=== PATIENT | male | born 1995 | race Caucasian/White ===

== ENCOUNTER 2019-05-02 16:36 | Emergency (ER) | payer BC ==
[2019-05-02 16:42] VITALS: BP 130/75; PULSE 98; TEMP 97.5; BMI 26.6
[2019-05-02] MEDS ORDERED: BACITRACIN 15 GM TUBE TOPICAL OINTMENT ONE (17:00)
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
== END 2019-05-02 17:18 | disposition home or self-care (01) ==
LOC: JERFT 16:36
DX: T14.8XXA Other injury of unspecified body region, initial encounter (principal); V18.4XXA Pedal cycle driver injured in noncollision transport accident in traffic accident, initial encounter; Y93.55 Activity, bike riding; Y92.89 Other specified places as the place of occurrence of the external cause
CPT/HCPCS: 99281-25

== ENCOUNTER 2019-10-02 18:23 | Emergency (ER) | payer BC ==
[2019-10-02 18:30] VITALS: BP 110/62; PULSE 100; TEMP 102; BMI 26.6
[2019-10-02] MEDS ORDERED: ACETAMINOPHEN 325 MG TABLET (FP) PO ONE (18:30)
--- NOTE | 2019-10-02 18:30 | PDOC ---
Rapid Medical Evaluation Medical Evaluation: Allergies Allergy/AdvReac Type Severity Reaction Status Date / Time No Known Allergies Allergy Verified 05/02/19 16:42 I have performed a brief in-person evaluation of this patient. The patient presents with a chief complaint of: fever, postnasal drip, rhinorrhea, congestion, cough x 5 days; taking allergy meds without relief of sxs; took dayquil this AM Pertinent physical exam findings: In NAD I have ordered the following: Flu, Tylenol The patient will proceed to the ED for further evaluation. 10/02/19 18:27
[2019-10-02] MEDS ORDERED: ALBUTEROL SO4 2.5/IPRATROPIUM 0.5 INH SOL 3 ML VIAL.NEB. NEB ONE ×2 (18:53→19:06)
[2019-10-02] MEDS ORDERED: KETOROLAC TROMETHAMINE 30 MG/1 ML VIAL IM ONE (18:53)
--- NOTE | 2019-10-02 18:59 | PDOC ---
History of Present Illness - General Chief Complaint: Cold Symptoms Stated Complaint: COLD SYMPTOMS Time Seen by Provider: 10/02/19 18:27 History Source: Patient Exam Limitations: No Limitations - History of Present Illness Initial Comments: 10/02/19 18:54 24-year-old with history of seizure, Chiari malformation requiring decompression at the age of 11, asthma without history of intubation presents complaining of body aches, fever T-max 103, chills, sore throat, frontal headache for 3 days. Patient has been working long hours this week however decided to come in today given symptoms have not improved. He took DayQuil this morning. Denies chest pain, abdominal pain, nausea, vomiting, diarrhea, recent travel, or sick contacts. ROS: GENERAL/CONSTITUTIONAL: Fever, chills, body aches, denies weakness HEAD, EYES, EARS, NOSE AND THROAT: Positive sore throat, no changes in vision, No ear pain or discharge CARDIOVASCULAR: No chest pain RESPIRATORY: Positive cough and mild shortness of breath GASTROINTESTINAL: No pain, nausea, vomiting, diarrhea or constipation GENITOURINARY: No dysuria MUSCULOSKELETAL: No neck or back pain SKIN: No rash NEUROLOGIC: Frontal headache, vertigo, loss of consciousness, or loss of sensation PE: GENERAL: well-appearing, NAD HEAD: NCAT EYES: Pupils equal, round and reactive to light, sclera anicteric, conjunctiva clear ENT: Normal bilateral ear canals, Pharynx: Mild erythema, no exudate, uvula midline NECK: supple CHEST: nontender RESP: clear, no w/r/r CARDIO: rrr, no m/g/r ABD: +BS, soft, nontender, non distended BACK: no midline spinal ttp, no CVAT EXTREMITIES: Normal range of motion, no edema NEUROLOGICAL: Normal speech, normal gait SKIN: Warm, Dry Past History - Past Medical History Allergies/Adverse Reactions: Allergies Allergy/AdvReac Type Severity Reaction Status Date / Time carbamazepine [From Tegretol] Allergy Verified 10/02/19 18:30 morphine Allergy Verified 10/02/19 18:30 Home Medications: Ambulatory Orders Albuterol 0.083% Nebulizer Chacha [Ventolin 0.083% Nebulizer Soln -] 1 neb NEB Q6H #30 vial 10/02/19 Azithromycin 250 mg PO ONCE #6 tablet 10/02/19 COPD: No Seizures: Yes Other medical history: SICKLE CELL TRAIT - Psycho Social/Smoking Cessation Hx Smoking History: Never smoked Hx Alcohol Use: No Drug/Substance Use Hx: No *Physical Exam - Vital Signs Last Vital Signs Temp Pulse Resp BP Pulse Ox 102 F H 100 H 18 110/62 99 10/02/19 18:26 10/02/19 18:26 10/02/19 18:26 10/02/19 18:26 10/02/19 18:26 Medical Decision Making - Medical Decision Making 10/02/19 18:57 24-year-old male with history of seizures, asthma, Chiari malformation requiring decompression at age 11 complaining of cough, body aches, sore throat , fever T-max 103, chills x3 days. Flu swab and rapid strep swab obtained DuoNeb IM Toradol 30 mg x 1 Reassess 10/02/19 20:48 Chest x-ray negative Flu and rapid strep swabs negative Temp 99.3 Patient feels better after Toradol and DuoNeb Prescribed Z-Ihsan and albuterol solution Note for work provided Return precautions discussed Discharge - Discharge Information Problems reviewed: Yes Clinical Impression/Diagnosis: Viral upper respiratory illness Condition: Stable Disposition: HOME - Admission No - Additional Discharge Information Prescriptions: Albuterol 0.083% Nebulizer Chacha [Ventolin 0.083% Nebulizer Soln -] 1 neb NEB Q6H #30 vial Azithromycin 250 mg PO ONCE #6 tablet - Follow up/Referral - Patient Discharge Instructions Additional Instructions: Take azithromycin and albuterol solution as prescribed Follow-up with your doctor within 1 week Return to ED if shortness of breath, chest pain, nausea, vomiting, diarrhea, fever, chills or worsening symptoms - Post Discharge Activity
[2019-10-02] MEDS ORDERED: KETOROLAC TROMETHAMINE 30 MG/1 ML VIAL ONE (19:05)
[2019-10-02] MEDS ORDERED: ACETAMINOPHEN 500 MG TABLET (FP) PO ONE (20:03)
[2019-10-02] MEDS ORDERED: ACETAMINOPHEN 500 MG TABLET (FP) ONE (20:16)
== END 2019-10-02 21:05 | disposition home or self-care (01) ==
LOC: JERFT 18:23
PROC: 3E0F7GC Introduction of Other Therapeutic Substance into Respiratory Tract, Via Natural or Artificial Opening (ICD-10-PCS; principal; 2019-10-02)
PROC: 3E0233Z Introduction of Anti-inflammatory into Muscle, Percutaneous Approach (ICD-10-PCS; 2019-10-02)
DX: J06.9 Acute upper respiratory infection, unspecified (principal); B97.89 Other viral agents as the cause of diseases classified elsewhere; J45.909 Unspecified asthma, uncomplicated; G40.909 Epilepsy, unspecified, not intractable, without status epilepticus; D57.3 Sickle-cell trait; Z88.8 Allergy status to other drugs, medicaments and biological substances; Z88.5 Allergy status to narcotic agent
CPT/HCPCS: 71046-TC-FY; 87070; 87804; 87880; 99281-25

== ENCOUNTER 2021-08-22 22:48 | Emergency (ER) | payer BC, OTHER ==
[2021-08-22 22:56] VITALS: BMI 27.8
[2021-08-22] MEDS ORDERED: ALBUTEROL SO4 2.5/IPRATROPIUM 0.5 INH SOL 3 ML VIAL.NEB. NEB ONE ×2 (23:20→23:32)
[2021-08-22] MEDS ORDERED: ALBUTEROL SO4 HFA INHALER IH ONE ×2 (23:25→23:32)
[2021-08-23 01:10] VITALS: BP 119/75; PULSE 86; TEMP 97.4
== END 2021-08-23 01:10 | disposition home or self-care (01) ==
LOC: JER 22:48
PROC: 3E0F7GC Introduction of Other Therapeutic Substance into Respiratory Tract, Via Natural or Artificial Opening (ICD-10-PCS; principal; 2021-08-22)
DX: J45.909 Unspecified asthma, uncomplicated (principal); J06.9 Acute upper respiratory infection, unspecified; Z11.52 Encounter for screening for COVID-19
CPT/HCPCS: 87804; 99283-25; C9803; U0003; U0005